=== PATIENT | male | born 1965 | race Caucasian/White ===

== ENCOUNTER 2018-05-05 09:01 | Observation (INO) | payer BC, OTHER ==
[2018-05-05] MEDS: SOD CHLORIDE 0.9% 1,000 ML IV (13:00)
[2018-05-05] MEDS ORDERED: DESFLURANE 15 MIN (13:00)
[2018-05-05] MEDS ORDERED: SUCCINYLCHOLINE CHLORIDE 100 MG/5 ML SYG IV (13:00)
[2018-05-05] MEDS ORDERED: CEFAZOLIN 1 GM INJ ×2 (13:00→13:21)
[2018-05-05] MEDS ORDERED: POLYMYXIN/BACITRACIN 1L IRRIG (13:11)
[2018-05-05] MEDS ORDERED: ONDANSETRON 4 MG INJ (13:21)
[2018-05-05] MEDS ORDERED: GLYCOPYRROLATE 0.4 MG INJ (13:21)
[2018-05-05] MEDS ORDERED: DEXAMETHASONE 4 MG/ML 5 ML INJ (13:21)
[2018-05-05] MEDS ORDERED: NEOSTIGMINE 3 MG/3 ML SYRINGE (13:21)
[2018-05-05] MEDS ORDERED: MIDAZOLAM 1 MG/ML 2 ML INJ (13:21)
[2018-05-05] MEDS ORDERED: ROCURONIUM 50 MG INJ (13:21)
[2018-05-05] MEDS ORDERED: PROPOFOL 20 ML (13:21)
[2018-05-05] MEDS ORDERED: FENTAnyl 50 MCG/ML VIAL ×2 (13:21→14:01)
[2018-05-05] MEDS ORDERED: MIDAZOLAM 1 MG/ML 2 ML INJ IV (13:30)
[2018-05-05] MEDS ORDERED: FENTAnyl 50 MCG/ML VIAL IV ×3 (13:30)
[2018-05-05] MEDS ORDERED: DIPHENHYDRAMINE 50 MG INJ IV (13:30)
[2018-05-05] MEDS ORDERED: HYDROmorphONE 1 MG/5 ML IV SYRINGE IV ×2 (13:30)
[2018-05-05] MEDS ORDERED: LABETALOL HCL 20MG INJ IV (13:30)
[2018-05-05] MEDS ORDERED: TRIMETHOBENZAMIDE 100 MG/ML VIAL IM (13:30)
[2018-05-05] MEDS ORDERED: IPRATROPIUM (NEB) 0.5 MG/2.5 ML AMP HHN (13:30)
[2018-05-05] MEDS: CEFAZOLIN 2 GM/50 ML (PMX) 50 ML IVPB (13:30)
[2018-05-05] MEDS ORDERED: OXYCODONE/ACETAMINOPHEN (5/325) TAB PO ×2 (13:30)
[2018-05-05] MEDS ORDERED: ALBUTEROL 0.083% (NEB) 2.5 MG/3 ML AMP HHN (13:30)
[2018-05-05] MEDS ORDERED: EPHEDrine SULFATE 50 MG/5 ML SYG IV (13:30)
[2018-05-05] MEDS ORDERED: MEPERIDINE 25 MG INJ IV (13:30)
[2018-05-05] MEDS: BUPIVACAINE 0.25% (MPF) 30 ML INJ (13:52)
[2018-05-05] MEDS: LIDOCAINE 1%/EPI (1:100,000) (MDV) 20 ML (13:52)
[2018-05-05] MEDS ORDERED: SUGAMMADEX SODIUM 200 MG/2 ML VIAL IV (14:30)
[2018-05-05] MEDS ORDERED: FLUMAZENIL 0.5 MG INJ (15:21)
[2018-05-05] MEDS: hydrALAzine 20 MG INJ IV (16:52)
[2018-05-05] MEDS: ONDANSETRON 4 MG INJ IV (16:52)
[2018-05-05] MEDS: HYDROmorphONE 1 MG/5 ML IV SYRINGE IV (16:53)
[2018-05-05] MEDS: ATORVASTATIN 20 MG TAB PO (22:10)
[2018-05-05] MEDS: ACETAMINOPHEN 325 MG TAB PO (22:10)
[2018-05-06] MEDS: ALBUTEROL/IPRATROPIUM (NEB) 3 ML AMP HHN ×4 (01:14→20:29)
[2018-05-06] MEDS: ACETAMINOPHEN 325 MG TAB PO ×2 (03:08→22:03)
[2018-05-06] MEDS: morphine 2 MG INJ IV (06:01)
[2018-05-06 06:40] LABS: ADD MAN DIFF? NO
[2018-05-06 06:56] LABS: BASOPHILS % 0.1 % (0.0-2.0); HEMATOCRIT 50.2 % (42.0-52.0); HEMOGLOBIN 15.7 g/dl (14.0-18.0); MEAN CORPUSCULAR HEMOGLOBIN 30.3 pg (29.0-33.0); MEAN CORPUSCULAR HGB CONC 31.3 g/dl (32.0-37.0); MEAN CORPUSCULAR VOLUME 96.9 fl (82.0-101.0); MONOCYTE # 0.5 10^3/ul (0.3-0.9); MONOCYTES % 4.6 % (0.0-11.0); NEUTROPHIL # 9.4 10^3/ul (1.6-7.5); NEUTROPHILS % 85.6 % (39.0-77.0); PLATELET COUNT 173 10^3/UL (140-415); POSITIVE DIFF @See below; RED BLOOD COUNT 5.18 10^6/ul (4.70-6.10); RED CELL DISTRIBUTION WIDTH 13.6 % (11.5-14.5)
[2018-05-06 07:27] LABS: ANION GAP 9 (5-13); BLOOD UREA NITROGEN 13 mg/dl (7-20); CALCIUM 8.9 mg/dl (8.4-10.2); CARBON DIOXIDE 36 mmol/L (21-31); CHLORIDE 100 mmol/L (97-110); CREATININE 0.63 mg/dl (0.61-1.24); Estimated GFR > 60 mL/min (>60); GLUCOSE 162 mg/dl (70-220); POTASSIUM 4.8 mmol/L (3.5-5.1); SODIUM 145 mmol/L (135-144)
[2018-05-06] MEDS: ONDANSETRON 4 MG INJ IV ×2 (09:26→13:21)
[2018-05-06] MEDS: HYDROCODONE/APAP (5/325) TAB PO (09:28)
[2018-05-06] MEDS: ATORVASTATIN 20 MG TAB PO (20:34)
[2018-05-07] MEDS: ALBUTEROL/IPRATROPIUM (NEB) 3 ML AMP HHN ×3 (01:22→14:17)
[2018-05-07] MEDS: HYDROCODONE/APAP (5/325) TAB PO (02:14)
[2018-05-07] MEDS: DOCUSATE SODIUM 100 MG CAP PO (02:22)
[2018-05-07] MEDS ORDERED: DOCUSATE SODIUM 100 MG CAP PO (09:00)
[2018-05-07] MEDS ORDERED: POLYETHYLENE GLYCOL 17 GM PACKET GTB (09:00)
== END 2018-05-07 17:38 | disposition home or self-care (01) ==
LOC: SDS 09:01 → 6WM 05-06 10:42
DX: K43.6 Other and unspecified ventral hernia with obstruction, without gangrene (principal); E66.01 Morbid (severe) obesity due to excess calories; Z68.43 Body mass index [BMI] 50.0-59.9, adult; G47.33 Obstructive sleep apnea (adult) (pediatric); E78.5 Hyperlipidemia, unspecified
CPT/HCPCS: 49653; 80048; 84443; 85025; 88302; 94640; 94660; 94664; 99217; G0378